=== PATIENT | female | born 1950 | race Caucasian/White ===

== ENCOUNTER 2024-06-26 13:00 | Emergency (ER) | payer MEDICARE ==
[~2024-06-26] VITALS: Ht 172.7 cm; Wt 84.0 kg
[2024-06-26 13:52] VITALS: BP 158/75
[2024-06-26] MEDS ORDERED: DICLOFENAC75 MG PO (15:46)
[2024-06-26 15:47] VITALS: BP 158/75
== END 2024-06-26 16:00 | disposition home or self-care (01) ==
LOC: ED 13:00
DX: S80.212A Abrasion, left knee, initial encounter (principal); S50.312A Abrasion of left elbow, initial encounter; E11.9 Type 2 diabetes mellitus without complications; I10 Essential (primary) hypertension; J44.9 Chronic obstructive pulmonary disease, unspecified; W01.0XXA Fall on same level from slipping, tripping and stumbling without subsequent striking against object, initial encounter